=== PATIENT | female | born 1950 | race Caucasian/White ===

== ENCOUNTER → 2017-08-12 | Day surgery (SDC) | payer BC, MEDICARE, OTHER ==
[~2017-08-12] MED LIST: ALAWAY10 ML OPHTHALMIC; AQUA CARE TOP; ASPIR 8181 MG PO; CA/MAG/ZINC/VIT D PO; HYDROCODONE-AP1 EAC6 PO; METOPROLOL ER PO; MICARDIS HCT 81 EACH PO; PRILOSEC 20 MG20 MG PO; PSYLLIUM FIBE0.52 GM PO; TRIAMCINOLONE A80 G2 TOP
[2017-08-12 09:07] LABS: HEMATOCRIT 39.7 % (37.0-47.0); HEMOGLOBIN 13.2 gm/dL (12.0-15.0); MCH 29.9 pg (26.0-34.0); MCHC 33.2 g/dL (28.0-37.0); MCV 90.2 fL (80.0-100.0); RBC 4.4 mil/uL (4.20-5.00); RDW-CV 13.9 % (10.5-14.5); WBC 7.1 thou/uL (4.0-11.0)
[2017-08-12 09:15] LABS: CALCIUM 9.1 mg/dL (8.5-10.1); CREATININE 0.9 mg/dL (0.6-1.3); POTASSIUM 3.8 mmol/L (3.5-5.1)
[2017-08-12 09:20] LABS: ALBUMIN 3.3 g/dL (3.4-5.0); TOTAL BILIRUBIN 0.7 mg/dL (<0.1-1.0); TOTAL PROTEIN 6.7 g/dL (6.4-8.2)
--- NOTE | 2017-08-12 11:57 | EKG ---
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
--- NOTE | 2017-08-12 16:33 | OP ---
[address] [address] OPERATIVE REPORT Name: STEPHANIE TRINIDAD Room: [facility]#: [id number] Admission: 08/12/17 Attend Phys: Servando Robles II Discharge: Date of : 48 Report #: [id number] THIS REPORT FOR: //name// CC: Doroteo Robles DATE OF SERVICE: 08/12/2017 PREOPERATIVE DIAGNOSIS: Right knee medial meniscus tear. POSTOPERATIVE DIAGNOSES: 1. Right knee medial meniscus tear. 2. Lateral tracking patella. 3. 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 PROCEDURE PERFORMED: 1. Right knee arthroscopic surgery with partial medial meniscectomy. 2. Lateral release. 3. Abrasion chondroplasty of lateral femoral condyle. SURGEON: Servando Robles II, DO. BURRER MACHINE: None. ANESTHESIA: Per operative record. ESTIMATED BLOOD LOSS: Minimal. ANTIBIOTICS: Per operative record. DRAINS: None. COMPLICATIONS: None. CONDITION: Stable to recovery room. DESCRIPTION OF PROCEDURE: The patient was taken to the operative suite, placed supine on the operating table and given appropriate anesthesia. The patient's right lower extremity sterilely prepped and draped with a well-padded knee arthroscopic law. Surgery began by midline portal incision. The arthroscope was advanced in the joint. There was significant posterior horn medial meniscus tear, which was stood around the medial margin. This was debrided utilizing baskets and shaver back to good stable margins. An electrocautery device was then utilized to smooth the edges. There was also shown to be a grade 3 chondromalacia noted to the lateral femoral condyle. This was debrided [address] [address] OPERATIVE REPORT Name: VIVISTEPHANIE Cannon Room: [facility]#: [id number] Admission: 08/12/17 Attend Phys: Servando Robles II Discharge: Date of : 48 Report #: [id number] utilizing shaver to the lateral femoral condyle. Medial femoral condyle was also debrided utilizing shaver down to bleeding bone and electrocautery wand was then utilized for coblation of both the lateral femoral condyle and medial femoral condyle. Attention was then turned to the patella. There was shown to be significant lateral patellar tilt, fixed lateral tracking. Utilizing arthroscopic wand, a lateral release was then performed to decrease patellar tilt and improve alignment. Knee was drained of arthroscopic fluid. ACL and PCL were intact throughout the procedure. The incision was then closed with 4-0 nylon in simple fashion. Dermabond dressing was applied. The patient transported to recovery room in stable condition. Counts were correct throughout the procedure. <ELECTRONICALLY SIGNED> By: Servando Robles II, DO 08/12/17 1633 1209 [id number] Robles II, DO /nt
== END | disposition home or self-care (01) ==
LOC: M.SUR 08:08
PROVIDERS: Orthopaedic Surgery
DX: M23.221 Derangement of posterior horn of medial meniscus due to old tear or injury, right knee (principal); M22.8X1 Other disorders of patella, right knee; M94.261 Chondromalacia, right knee; Z79.82 Long term (current) use of aspirin; Z79.891 Long term (current) use of opiate analgesic; Z79.899 Other long term (current) drug therapy